=== PATIENT | male | born 1990 | race Two or more races ===

== ENCOUNTER 2021-09-17 11:11 | Emergency (ER) | payer OTHER ==
[~2021-09-17] VITALS: Ht 167.6 cm; Wt 70.3 kg
== END 2021-09-17 11:56 | disposition home or self-care (01) ==
LOC: ER 11:11
DX: K52.89 Other specified noninfective gastroenteritis and colitis (principal)

== ENCOUNTER 2022-06-22 13:45 | Emergency (ER) | payer OTHER ==
[~2022-06-22] VITALS: Ht 167.6 cm; Wt 68.0 kg
== END 2022-06-22 17:13 | disposition home or self-care (01) ==
LOC: ER 13:45
DX: R19.5 Other fecal abnormalities (principal)

== ENCOUNTER 2022-06-23 10:43 | Outpatient (CLI) | payer OTHER | END 2022-06-23 10:47 | disposition home or self-care (01) | LOC: LAB 10:43 | PROVIDERS: ATTEND Emergency Medicine | DX: R19.7 Diarrhea, unspecified (principal) ==

== ENCOUNTER 2022-06-24 13:42 | Outpatient (CLI) | payer OTHER | END 2022-06-24 13:57 | disposition home or self-care (01) | LOC: LAB 13:42 | DX: R19.7 Diarrhea, unspecified (principal) ==

== ENCOUNTER 2022-06-25 09:35 | Outpatient (CLI) | payer OTHER | END 2022-06-25 09:41 | disposition home or self-care (01) | LOC: LAB 09:35 | PROVIDERS: ATTEND General Practice | DX: Z00.00 Encounter for general adult medical examination without abnormal findings (principal); E07.9 Disorder of thyroid, unspecified; N39.0 Urinary tract infection, site not specified; D50.8 Other iron deficiency anemias; B34.9 Viral infection, unspecified; I10 Essential (primary) hypertension; E78.2 Mixed hyperlipidemia; R19.2 Visible peristalsis; E11.9 Type 2 diabetes mellitus without complications; R80.9 Proteinuria, unspecified; E55.9 Vitamin D deficiency, unspecified; N40.0 Benign prostatic hyperplasia without lower urinary tract symptoms ==

== ENCOUNTER 2022-06-28 13:04 | Outpatient (CLI) | payer OTHER | END 2022-06-28 13:43 | disposition home or self-care (01) | LOC: LAB 13:04 | DX: R19.7 Diarrhea, unspecified (principal) ==

== ENCOUNTER 2022-07-26 04:52 | Outpatient (CLI) | payer OTHER | END 2022-07-26 15:00 | disposition home or self-care (01) | LOC: LAB 04:52 | PROVIDERS: ATTEND Obstetrics & Gynecology | DX: Z20.828 Contact with and (suspected) exposure to other viral communicable diseases (principal); Z20.818 Contact with and (suspected) exposure to other bacterial communicable diseases ==

== ENCOUNTER 2022-10-25 06:27 | Emergency (ER) | payer OTHER ==
[~2022-10-25] VITALS: Ht 152.4 cm; Wt 70.8 kg
== END 2022-10-25 08:26 | disposition home or self-care (01) ==
LOC: ER 06:27
DX: J03.80 Acute tonsillitis due to other specified organisms (principal); B96.89 Other specified bacterial agents as the cause of diseases classified elsewhere

== ENCOUNTER 2022-11-06 13:55 | Emergency (ER) | payer OTHER ==
[~2022-11-06] VITALS: Ht 170.2 cm; Wt 70.3 kg
[2022-11-06] MEDS ORDERED: MOLNUPIRAVIR (200 MG PO (17:02)
== END 2022-11-06 17:35 | disposition home or self-care (01) ==
LOC: ER 13:55
DX: U07.1 COVID-19 (principal)